=== PATIENT | female | born 1990 | race Caucasian/White ===

== ENCOUNTER 2019-01-11 23:46 | Emergency (ER) | payer BC ==
[~2019-01-11] VITALS: Ht 162.6 cm; Wt 105.1 kg
[~2019-01-11 23:46] MED LIST: CALC600T5 PO; FERR240T9 PO; IBUP-1542 PO; IBUP-1544 PO; METR500T PO; NITR-58 PO; PERCOCET PO; PREN1TAB62 PO
[2019-01-11 23:56] VITALS: Ht 162.6 cm; Wt 105.1 kg
[2019-01-12] MEDS ORDERED: SODIUM CHLORIDE 0.9% 1L BAG IV* STA (00:15)
[2019-01-12] MEDS ORDERED: ACETAMINOPHEN 500 MG TAB PO ONE (01:20)
[2019-01-12] MEDS ORDERED: KETOROLAC 15 MG INJ IV ONE (01:20)
--- NOTE | 2019-01-12 03:02 | ERD ---
ER Documentation Chief Complaint Chief Complaint fever/chills/cough x 2 days, also c/o vomiting, headache, lower back pain HPI This is a 28-year-old female with no significant past medical history who is presenting with 2 days of fever, chills, mild frontal headache, body aches, low back pain, nausea, multiple episodes of nonbilious nonbloody vomiting. She does not endorse being around any known sick contacts. She does not endorse any alleviating or exacerbating factors. The patient has had no vision changes. The patient does not endorse neck pain or stiffness. The patient denies lightheadedness or dizziness. The patient has had no chest pain or trouble breathing. The patient denies abdominal pain. The patient denies changes to bowel movements or urination. The patient has had no focal deficits. The patient has had no weakness or numbness or tingling to the face or extremities. ROS All systems reviewed and are negative except as per history of present illness. Medications Home Meds Active Scripts Ibuprofen* (Motrin*) 600 Mg Tab, 600 MG PO Q6H PRN for PAIN AND OR ELEVATED TEMP, #30 TAB Prov:ESTHER SANDOVAL DO 10/28/18 Nitrofurantoin Monohyd Macrocr* (Macrobid*) 100 Mg Capsr, 100 MG PO BID for uti for 5 Days, #10 CAP Prov:ESTHER SANDOVAL DO 10/28/18 Metronidazole* (Flagyl*) 500 Mg Tablet, 500 MG PO BID for bacterial vaginosis for 7 Days, #14 TAB Prov:ESTHER SANDOVAL DO 10/28/18 Oxycodone Hcl/Acetaminophen (Percocet) 1 Tab Tab, 2 TAB PO Q4H PRN for PAIN LEVEL 6-10, #30 TAB 0 Refills Prov:TERENCE KILGORE MD 04/03/16 Ibuprofen* (Ibuprofen*) 800 Mg Tablet, 800 MG PO Q8, #20 TAB 0 Refills Prov:TERENCE KILGORE MD 04/03/16 Reported Medications Calcium Carbonate (CALCIUM) 600 Mg Tablet, 600 MG PO DAILY, TAB 12/17/15 Ferrous Gluconate (Iron) 1 Tab Tablet, 1 TAB PO DAILY, TAB 12/17/15 Vit-Iron Fumarate-FA ( Vitamin Tablet) 1 Each Tablet, 1 EACH PO DAILY 02/23/14 Allergies Allergies: Coded Allergies: No Known Allergies (Verified Allergy, Unknown, 03/31/16) PMhx/Soc History of Surgery: Yes () Anesthesia Reaction: No Hx Neurological Disorder: No Hx Respiratory Disorders: No Hx Cardiac Disorders: No Hx Psychiatric Problems: No Hx Miscellaneous Medical Probl: No Hx Alcohol Use: No Hx Substance Use: No Hx Tobacco Use: No FmHx Family History: No diabetes Physical Exam Vitals Vital Signs Date Temp Pulse Resp B/P (MAP) Pulse Ox O2 O2 Flow FiO2 Time Delivery Rate 01/12/19 102.0 01:33 01/11/19 103.4 117 20 136/86 99 23:56 (103) Physical Exam Const: No apparent distress, well-developed, well-nourished Head: Normocephalic, Atraumatic Eyes: Normal Conjunctiva. Extraocular movements intact. Pupils equal, round and reactive to light ENT: Normal External Ears, Nose and Mouth. Neck: Full range of motion. No meningismus. Resp: Clear to auscultation bilaterally, No wheezes, rales or rhonchi Cardio: Regular rhythm. Tachycardia. No murmurs, rubs or gallops Abd: Soft, non tender, non distended. Normal bowel sounds Skin: No petechiae or rashes Back: No midline tenderness. No CVA tenderness Ext: No cyanosis, or edema Neur: Awake and alert, oriented 4. Cranial nerves intact. No facial droop. Normal strength, sensation and coordination. Psych: Normal Mood and Affect Result Diagram: 01/12/19 0025 01/12/19 0025 Results 24 hrs Laboratory Tests Test 01/12/19 00:25 01/12/19 01:30 01/12/19 02:01 White Blood Count 5.0 10^3/ul Red Blood Count 5.14 10^6/ul Hemoglobin 14.3 g/dl Hematocrit 43.7 % Mean Corpuscular Volume 85.0 fl Mean Corpuscular Hemoglobin 27.8 pg Mean Corpuscular 32.7 g/dl Hemoglobin Concent Red Cell Distribution Width 13.2 % Platelet Count 292 10^3/UL Mean Platelet Volume 10.3 fl Immature Granulocytes % 0.200 % Neutrophils % 65.2 % Lymphocytes % 17.3 % Monocytes % 16.9 % Eosinophils % 0.2 % Basophils % 0.2 % Nucleated Red Blood Cells % 0.0 /100WBC Immature Granulocytes # 0.010 10^3/ul Neutrophils # 3.3 10^3/ul Lymphocytes # 0.9 10^3/ul Monocytes # 0.9 10^3/ul Eosinophils # 0.0 10^3/ul Basophils # 0.0 10^3/ul Nucleated Red Blood Cells # 0.0 10^3/ul Prothrombin Time 12.7 Sec Prothrombin Time Ratio 1.0 INR International 0.94 Normalized Ratio Activated Partial Thromboplast 30.2 Sec Time Sodium Level 142 mmol/L Potassium Level 4.0 mmol/L Chloride Level 102 mmol/L Carbon Dioxide Level 27 mmol/L Anion Gap 13 Blood Urea Nitrogen 9 mg/dl Creatinine 0.53 mg/dl Est Glomerular Filtrat > 60 mL/min Rate mL/min Glucose Level 98 mg/dl Calcium Level 8.9 mg/dl Total Bilirubin 0.3 mg/dl Direct Bilirubin 0.00 mg/dl Indirect Bilirubin 0.3 mg/dl Aspartate Amino 27 IU/L Transf (AST/SGOT) Alanine 43 IU/L Aminotransferase (ALT/SGPT) Alkaline Phosphatase 52 IU/L Troponin I < 0.012 ng/ml Total Protein 7.8 g/dl Albumin 4.2 g/dl Globulin 3.60 g/dl Albumin/Globulin Ratio 1.16 Urine Color STRAW Urine Clarity CLEAR Urine pH 7.0 Urine Specific [place] 1.010 Urine Ketones NEGATIVE mg/dL Urine Nitrite NEGATIVE mg/dL Urine Bilirubin NEGATIVE mg/dL Urine Urobilinogen NEGATIVE mg/dL Urine Leukocyte Esterase NEGATIVE Daren/ul Urine Hemoglobin NEGATIVE mg/dL Urine Glucose NEGATIVE mg/dL Urine Total Protein NEGATIVE mg/dl POC Beta HCG, Qualitative NEGATIVE Current Medications Medications Dose Sig/Connie Start Time Status Last (Trade) Ordered Route PRN Stop Time Admin Dose Reason Admin Sodium 1,640 ml BOLUS OVER 2 01/12/19 DC Chloride HOURS STAT 00:15 (NS) IV* 01/12/19 00:16 1,000 mg ONCE ONCE 01/12/19 DC 01/12/19 Acetaminophen PO 01:20 01:33 (Tylenol 01/12/19 01:21 Tab) Ketorolac 15 mg ONCE ONCE 01/12/19 DC 01/12/19 Tromethamine IV 01:20 01:33 (Toradol) 01/12/19 01:21 Procedures/MDM MDM The patient's presentation warrants further investigation. Previous medical records, if available, were reviewed. LABS The patient's laboratory testing was obtained and reviewed. No emergent treatment was required unless described below. CBC: No E/o systemic infection or severe anemia or thrombocytopenia Chemistry: No E/o severe acidosis or alkalosis or renal failure or liver disease or diabetic ketoacidosis PT/INR: No E/o significant coagulopathy Lactate: No E/o severe sepsis Troponin: No E/o acute ischemia Urine: No E/o acute infection or hematuria Influenza: Positive for influenza B EKG EKG read by me: Rate/Rhythm: Sinus tachycardia at 114 bpm Intervals: Normal [place]: Normal Impression: No evidence of acute ischemia. Sinus tachycardia. IMAGING Imaging and Radiology interpretation reviewed. CXR FINDINGS: The heart and mediastinum are within normal limits. Mild increased density projected over the lower lungs thought to likely be secondary to overlying breast tissue. No focal lung consolidation is seen. There is no pleural effusion or pneumothorax. IMPRESSION: No definite acute abnormality seen as noted above. Please see above. Electronically viewed and signed by John Arango MD, MD on 01/12/2019 01:53 TREATMENT/DISPOSITION The patient presents with flulike symptoms. The patient was found to have influenza B. Given that the patient did meet criteria for a systemic inflammatory response syndrome, a septic workup was completed. The patient's lactic acid was within normal limits. The patient has no leukocytosis. The patient's blood work is reassuring. The patient is not septic, and I do not feel the patient requires a full septic workup. The patient would not benefit from antibiotics. Given that the patient's symptoms started 2 days ago, I do feel that the patient may benefit from Tamiflu in an outpatient setting. DISCHARGE Upon reevaluation of the patient, symptoms have improved. No emergent diagnoses were identified. At this time, I feel that the patient stable for discharge. The patient was instructed to follow-up with a primary care physician in 1-3 days. The patient will be given strict precautions with which to return to the emergency department. Prescriptions: Tamiflu, Zofran The patient's blood pressure was elevated at greater than 120/80 while in the emergency department. The patient was otherwise stable with no evidence of h ypertensive urgency or emergency. The patient does not require admission for blood pressure control. I have discussed with the patient the risks of hypertension. I have instructed the patient to return to the ER for any new or worsening symptoms including chest pain, shortness of breath, headache, blurred vision, confusion, nausea, vomiting or LOC. I have advised the patient to follow up with the primary care physician for outpatient monitoring and treatment for hypertension in 1-3 days. Disclaimer: Inadvertent spelling and grammatical errors are likely due to EHR/dictation software use and do not reflect on the overall quality of patient care. Note that the electronic time recorded on this note does not necessarily reflect the actual time of the patient encounter. Departure Diagnosis: Primary Impression: Influenza B Additional Impressions: Fever Fever type: unspecified Qualified Codes: R50.9 - Fever, unspecified Tachycardia Condition: Stable Patient Instructions: Fever Control (Adult), Influenza (Adult), Sinus Tachycardia Additional Instructions: Thank you for for coming to [facility] for your care today. Please ask your nurse or provider if you have questions about your care today and do not leave until all your questions have been answered. Please use any medications given as directed and follow-up with your doctor (or the doctor you were referred to) in the next 1-3 days. If you do not have a primary care doctor you may follow up at the [facility] (listed below). You may also use motrin and tylenol as needed for fever and/or pain unless instructed otherwise by your provider or nurse. Indications for more urgent follow-up have been discussed, but you may return to the Emergency Department at ANY time for any worrisome or worsening symptoms. If you have abdominal pain, please know that no test or exam you received is pe rfect and you should follow up within 8 hours for continued pain. If you had any imaging studies today, such as an X-Ray or CT Scan, these studies will be reviewed later by a radiologist. You will be called if there are important findings that were not identified today, so make sure the contact inf ormation you provided at registration is correct. If you received any narcotic pain control medicine today, such as Vicodin, Morphine or Dilaudid, your coordination and judgment may be affected for a number of hours. Please do not drive or operate heavy machinery, and you may want someone to assist you at home. If you were given a prescription for narcotic medication, be aware that it is very addictive- use sparingly and only if necessary. PLEASE SEEK FURTHER EVALUATION AND MANAGEMENT AT YOUR DOCTORS OFFICE WITHIN THE NEXT 1-3 DAYS. IT IS YOUR RESPONSIBILITY TO MAKE AN APPOINTMENT FOR FOLOW-UP CARE. IF YOU HAVE A PRIMARY DOCTOR, PLEASE CALL THEIR OFFICE TO SCHEDULE AN APPOINTMENT FOR FOLLOW UP. IF YOU DO NOT HAVE A PRIMARY DOCTOR YOU CAN CALL OUR PHYSICIAN REFERRAL HOTLINE AT IF YOU CAN NOT AFFORD TO SEE A PHYSICIAN YOU CAN CHOSE FROM THE FOLLOWING [facility]: [facility] [address] [facility]. [facility] [address] [facility] [address] [facility] [address] [facility] [address] [facility]. [facility]. [address] FRAN ANGLIN MD Jan 12, 2019 03:02
[2019-01-12] MEDS ORDERED: OSEL75CA23 PO (03:03)
[2019-01-12] MEDS ORDERED: ONDA8TAB9 PO (03:03)
[2019-01-12 03:13] VITALS: BP 116/67; PULSE 111; RESP 16
== END 2019-01-12 03:26 | disposition home or self-care (01) ==
LOC: E/R 23:46
DX: J10.1 Influenza due to other identified influenza virus with other respiratory manifestations (principal); R00.0 Tachycardia, unspecified
CPT/HCPCS: 71045; 80053; 81003; 81025; 83605; 84484; 85025; 85610; 85730; 87040; 87086; 87400; 93005; 96372; J1885; J7030; Z7502; Z7610